=== PATIENT | female | born 1965 | race African-American/Black ===

== ENCOUNTER 2019-03-18 10:02 | Emergency (ER) | payer MEDICARE, MEDICAID ==
[~2019-03-18] VITALS: Ht 167.6 cm; Wt 135.0 kg
[2019-03-18 11:21] LABS: CLARITY URINE TURBID (CLEAR); COLOR URINE DARK YELLOW (YELLOW); KETONES URINE TRACE (NEGATIVE); LEUKOCYTE ESTERASE URINE 3+ (NEGATIVE); NITRITE URINE NEGATIVE (NEGATIVE); OCCULT BLOOD URINE 3+ (NEGATIVE); PROTEIN URINE 2+ (NEGATIVE); SPECIFIC GRAVITY URINE 1.017 (1.005-1.030)
[2019-03-18 11:25] LABS: BASOPHILS % 0.7 % (0.0-2.0); EOSINOPHILS % 0.1 % (0.0-5.0); HEMATOCRIT. 38.2 % (36.0-48.0); HEMOGLOBIN. 12.3 g/dL (12.0-16.0); LYMPHOCYTES % 15.3 % (20.0-50.0); MEAN CORPUSCULAR HEMOGLOBIN 29.2 pg (28.0-32.0); MEAN CORPUSCULAR VOLUME 90.6 fL (81.0-99.0); MONOCYTES % 9.1 % (2.0-8.0); NEUTROPHILS % 74.8 % (40.0-76.0); PLATELET 162 x1000/uL (130-400); RED BLOOD CELL COUNT 4.21 mill/uL (4.2-5.4); RED CELL DISTRIBUTION WIDTH 16.4 % (11.6-14.6)
[2019-03-18 11:32] LABS: CHLORIDE 105 mEq/L (98-107); PROTHROMBIN TIME 10.7 sec (9.6-11.0)
[2019-03-18] MEDS ORDERED: SODIUM CHLORIDE 0.9% 500 ML IV ONE (11:53)
[2019-03-18] MEDS ORDERED: CEFTRIAXONE 1 G PREMIX 50 ML IV ONE (12:00)
[2019-03-18] MEDS ORDERED: ACETAMINOPHEN 325MG TABLET PO ONE (13:15)
[2019-03-18 13:45] VITALS: BP 143/78
== END 2019-03-18 14:07 | disposition home or self-care (01) ==
LOC: ER 10:40
DX: N39.0 Urinary tract infection, site not specified (principal); E86.0 Dehydration; J45.909 Unspecified asthma, uncomplicated; I10 Essential (primary) hypertension; Z88.8 Allergy status to other drugs, medicaments and biological substances; Z93.0 Tracheostomy status; Z87.891 Personal history of nicotine dependence
CPT/HCPCS: 36415; 70450; 71045; 80053; 81003; 83605; 83880; 84484; 85025; 85610; 87040; 87077; 87086; 87186; 87804; 93005; 96365; 99284; J0696; J7040

== ENCOUNTER 2019-10-19 18:49 | Emergency (ER) | payer MEDICARE, MEDICAID ==
[~2019-10-19] VITALS: Ht 170.2 cm; Wt 145.0 kg
[2019-10-19] MEDS ORDERED: HYDROCODONE/ACETAMINOPHEN 5/325MG TABLET PO ONE (19:30)
[2019-10-19] MEDS ORDERED: ONDANSETRON 4MG ODT PO ONE (19:30)
[2019-10-19 22:21] VITALS: BP 179/75
== END 2019-10-19 22:32 | disposition home or self-care (01) ==
LOC: ER 18:49
DX: S60.212A Contusion of left wrist, initial encounter (principal); S80.02XA Contusion of left knee, initial encounter; E78.00 Pure hypercholesterolemia, unspecified; I10 Essential (primary) hypertension; Z88.8 Allergy status to other drugs, medicaments and biological substances; W18.30XA Fall on same level, unspecified, initial encounter; Y93.89 Activity, other specified; Y92.89 Other specified places as the place of occurrence of the external cause; Y99.8 Other external cause status
CPT/HCPCS: 73110; 73130; 73562; 73590; 99284; Q0162

== ENCOUNTER 2019-10-21 20:11 | Emergency (ER) | payer MEDICARE, MEDICAID ==
[~2019-10-21] VITALS: Ht 165.1 cm; Wt 172.0 kg
[2019-10-22 02:00] VITALS: BP 165/92
== END 2019-10-22 04:42 | disposition home or self-care (01) ==
LOC: ER 20:11
DX: F10.129 Alcohol abuse with intoxication, unspecified (principal); Y90.0 Blood alcohol level of less than 20 mg/100 ml; J44.9 Chronic obstructive pulmonary disease, unspecified; E78.00 Pure hypercholesterolemia, unspecified; I10 Essential (primary) hypertension; Z88.8 Allergy status to other drugs, medicaments and biological substances
CPT/HCPCS: 36415; 80320; 93005; 99284; G0480

== ENCOUNTER 2019-10-24 11:58 | Emergency (ER) | payer MEDICARE, MEDICAID ==
[~2019-10-24] VITALS: Ht 165.1 cm; Wt 135.0 kg
[2019-10-24] MEDS ORDERED: SODIUM CHLORIDE 0.9% 1,000 ML IV ONE (15:02)
[2019-10-24 16:09] LABS: EOSINOPHILS % 3.5 % (0.0-5.0); HEMATOCRIT. 38.6 % (36.0-48.0); HEMOGLOBIN. 12.8 g/dL (12.0-16.0); LYMPHOCYTES % 33.6 % (20.0-50.0); MEAN CORPUSCULAR HEMOGLOBIN 29.5 pg (28.0-32.0); MEAN CORPUSCULAR VOLUME 89.3 fL (81.0-99.0); MEAN PLATELET VOLUME 8.7 fl (7.4-10.4); MONOCYTES % 8.1 % (2.0-8.0); NEUTROPHILS % 53.8 % (40.0-76.0); PLATELET 182 x1000/uL (130-400); RED BLOOD CELL COUNT 4.32 mill/uL (4.2-5.4); RED CELL DISTRIBUTION WIDTH 15.7 % (11.6-14.6)
[2019-10-24 16:15] LABS: CHLORIDE 110 mEq/L (98-107)
[2019-10-24 16:19] LABS: ETHANOL BLOOD < 10 mg/dL
[2019-10-24] MEDS ORDERED: CLONIDINE 0.2MG TABLET PO ONE (18:00)
[2019-10-24] MEDS ORDERED: AMLODIPINE 5MG TABLET PO ONE (18:00)
[2019-10-24 18:05] LABS: CLARITY URINE CLEAR (CLEAR); COLOR URINE YELLOW (YELLOW); KETONES URINE TRACE (NEGATIVE); LEUKOCYTE ESTERASE URINE NEGATIVE (NEGATIVE); NITRITE URINE NEGATIVE (NEGATIVE); OCCULT BLOOD URINE NEGATIVE (NEGATIVE); PH URINE 5.5 (4.5-8.0); PROTEIN URINE NEGATIVE (NEGATIVE); SPECIFIC GRAVITY URINE 1.021 (1.005-1.030)
[2019-10-24 18:14] LABS: *AMPHETAMINES SCREEN URINE NEGATIVE (NEGATIVE); *BARBITURATES SCREEN URINE NEGATIVE (NEGATIVE); *BENZODIAZEPINES SCREEN URINE PRESUMTIVE POSITIVE (NEGATIVE); *COCAINE SCREEN URINE NEGATIVE (NEGATIVE)
[2019-10-24 18:15] LABS: CANNABINOID URINE SCREEN NEGATIVE (NEGATIVE); METHADONE URINE SCREEN NEGATIVE (NEGATIVE); OPIATES URINE SCREEN PRESUMTIVE POSITIVE (NEGATIVE); PHENCYCLIDINE URINE SCREEN NEGATIVE (NEGATIVE)
[2019-10-24 18:36] VITALS: BP 150/80
== END 2019-10-24 20:21 | disposition home or self-care (01) ==
LOC: ER 12:07
DX: F10.10 Alcohol abuse, uncomplicated (principal); Y90.0 Blood alcohol level of less than 20 mg/100 ml; I10 Essential (primary) hypertension; G92 Toxic encephalopathy; J44.9 Chronic obstructive pulmonary disease, unspecified; E78.00 Pure hypercholesterolemia, unspecified; Z88.8 Allergy status to other drugs, medicaments and biological substances
CPT/HCPCS: 36415; 70450; 80053; 80305; 80307; 80320; 80329; 81003; 85025; 99284; J7030; G0480

== ENCOUNTER 2019-10-25 01:31 | Inpatient (IN) | payer MEDICARE, MEDICAID ==
[~2019-10-25] VITALS: Ht 167.6 cm; Wt 165.6 kg
[2019-10-25] MEDS ORDERED: AMLODIPINE 10MG TABLET PO ONE (09:00)
[2019-10-25] MEDS ORDERED: CLONIDINE 0.2MG TABLET PO ONE (09:00)
[2019-10-25 11:44] LABS: BASOPHILS % 0.7 % (0.0-2.0); EOSINOPHILS % 3.3 % (0.0-5.0); HEMATOCRIT. 38.6 % (36.0-48.0); HEMOGLOBIN. 12.8 g/dL (12.0-16.0); LYMPHOCYTES % 24.6 % (20.0-50.0); MEAN CORPUSCULAR HEMOGLOBIN 29.8 pg (28.0-32.0); MEAN CORPUSCULAR VOLUME 89.6 fL (81.0-99.0); MEAN PLATELET VOLUME 8.9 fl (7.4-10.4); MONOCYTES % 7.5 % (2.0-8.0); NEUTROPHILS % 63.9 % (40.0-76.0); PLATELET 177 x1000/uL (130-400); RED CELL DISTRIBUTION WIDTH 16.2 % (11.6-14.6)
[2019-10-25 11:56] LABS: CHLORIDE 111 mEq/L (98-107); CLARITY URINE CLOUDY (CLEAR); COLOR URINE YELLOW (YELLOW); KETONES URINE NEGATIVE (NEGATIVE); LEUKOCYTE ESTERASE URINE NEGATIVE (NEGATIVE); NITRITE URINE NEGATIVE (NEGATIVE); OCCULT BLOOD URINE NEGATIVE (NEGATIVE); PROTEIN URINE NEGATIVE (NEGATIVE); SPECIFIC GRAVITY URINE 1.018 (1.005-1.030)
[2019-10-25] MEDS ORDERED: ONDANSETRON HCL 4MG/2ML INJ IV PRN (15:30)
[2019-10-25] MEDS ORDERED: CLONIDINE 0.1MG TABLET PO PRN (15:30)
[2019-10-25] MEDS ORDERED: HYDRALAZINE HCL 100MG TABLET PO NR (15:30)
[2019-10-25 22:30] VITALS: BP 154/82
[2019-10-26] MEDS: HYDRALAZINE HCL 100MG TABLET PO SCH ×4 (00:36→21:04)
[2019-10-26 04:00] VITALS: BP 143/71
[2019-10-26] MEDS: AMLODIPINE 10MG TABLET PO SCH (07:19)
[2019-10-26 08:00] VITALS: BP 126/68
[2019-10-26 12:00] VITALS: BP 145/74
[2019-10-26 16:00] VITALS: BP 127/70
[2019-10-26 19:56] VITALS: BP 154/85
[2019-10-26] MEDS: ACETAMINOPHEN 325MG TABLET PO PRN (23:27)
[2019-10-27] VITALS (7 sets, daily range): BP systolic 133–164; BP diastolic 71–81
[2019-10-27] MEDS: HYDRALAZINE HCL 100MG TABLET PO SCH ×3 (06:33→20:33)
[2019-10-27] MEDS: AMLODIPINE 10MG TABLET PO SCH (09:06)
[2019-10-27] MEDS: ACETAMINOPHEN 325MG TABLET PO PRN (20:33)
[2019-10-28] VITALS: BP 103/54
[2019-10-28] MEDS: ACETAMINOPHEN 325MG TABLET PO PRN (03:30)
[2019-10-28 04:00] VITALS: BP 145/88
[2019-10-28] MEDS ORDERED: OMEP20TA2 MT (04:54)
[2019-10-28] MEDS ORDERED: PANT40TA4 MT (04:54)
[2019-10-28] MEDS ORDERED: CARV3.1242 MT (04:54)
[2019-10-28] MEDS ORDERED: TOPUD PO (04:54)
[2019-10-28] MEDS ORDERED: SERT25TA74 MT (04:54)
[2019-10-28] MEDS ORDERED: CYCL10TA7 MT (04:54)
[2019-10-28] MEDS ORDERED: HYDR-4001 PO (04:54)
[2019-10-28] MEDS ORDERED: HYDR25TA MT (04:54)
[2019-10-28] MEDS ORDERED: ASPI-1497 PO (04:54)
[2019-10-28] MEDS ORDERED: ARIP15TA7 MT (04:54)
[2019-10-28] MEDS ORDERED: OXYB5SYR2 JT (04:54)
[2019-10-28] MEDS ORDERED: CLON0.2T MT (04:54)
[2019-10-28] MEDS ORDERED: NAPR500T7 MT (04:54)
[2019-10-28] MEDS ORDERED: SIMV10TA97 MT (04:54)
[2019-10-28] MEDS ORDERED: AMLO10TA80 MT (04:54)
[2019-10-28] MEDS ORDERED: VALS40TA11 MT (04:54)
[2019-10-28] MEDS ORDERED: ALPR2TAB97 MT (04:54)
[2019-10-28] MEDS ORDERED: FURO20TA4 MT (04:54)
[2019-10-28] MEDS ORDERED: SULF-288 MT (04:54)
[2019-10-28] MEDS ORDERED: AMLO5TAB88 MT (04:54)
[2019-10-28] MEDS: HYDRALAZINE HCL 100MG TABLET PO SCH ×3 (06:23→21:14)
[2019-10-28 08:00] VITALS: BP 156/79
[2019-10-28] MEDS: AMLODIPINE 10MG TABLET PO SCH (09:00)
[2019-10-28] MEDS ORDERED: LACTULOSE 20G/30ML UDC PO NR (11:15)
[2019-10-28] MEDS: HYDROCODONE/ACETAMINOPHEN 5/325MG TABLET PO PRN (11:23)
[2019-10-28 12:00] VITALS: BP 134/73
[2019-10-28] MEDS: DOCUSATE SODIUM 250MG CAPSULE PO SCH (12:21)
[2019-10-28 16:00] VITALS: BP 110/55
[2019-10-28 20:00] VITALS: BP 143/73
[2019-10-29] VITALS: BP 109/61
[2019-10-29] MEDS: HYDROCODONE/ACETAMINOPHEN 5/325MG TABLET PO PRN ×2 (00:31→21:41)
[2019-10-29 04:00] VITALS: BP 138/81
[2019-10-29] MEDS: HYDRALAZINE HCL 100MG TABLET PO SCH ×3 (05:19→21:40)
[2019-10-29 08:00] VITALS: BP 134/71
[2019-10-29] MEDS: DOCUSATE SODIUM 250MG CAPSULE PO SCH (08:44)
[2019-10-29] MEDS: AMLODIPINE 10MG TABLET PO SCH (08:45)
[2019-10-29 12:00] VITALS: BP 139/77
[2019-10-29 20:00] VITALS: BP 122/74
[2019-10-30] VITALS: BP 131/59
[2019-10-30 04:00] VITALS: BP 129/66
[2019-10-30] MEDS: HYDRALAZINE HCL 100MG TABLET PO SCH ×3 (06:17→21:34)
[2019-10-30] MEDS: AMLODIPINE 10MG TABLET PO SCH (09:00)
[2019-10-30] MEDS: DOCUSATE SODIUM 250MG CAPSULE PO SCH (09:01)
[2019-10-30] MEDS: OMEPRAZOLE 20MG CAPSULE EXTENDED RELEASE PO SCH (14:22)
[2019-10-30 20:00] VITALS: BP 132/75
[2019-10-30] MEDS: HYDROCODONE/ACETAMINOPHEN 5/325MG TABLET PO PRN (23:15)
[2019-10-31] VITALS: BP 117/64
[2019-10-31 04:00] VITALS: BP 133/56
[2019-10-31] MEDS: HYDROCODONE/ACETAMINOPHEN 5/325MG TABLET PO PRN ×2 (04:19→14:05)
[2019-10-31] MEDS: OMEPRAZOLE 20MG CAPSULE EXTENDED RELEASE PO SCH (05:23)
[2019-10-31 08:00] VITALS: BP 131/77
[2019-10-31] MEDS: AMLODIPINE 10MG TABLET PO SCH (08:46)
[2019-10-31] MEDS: DOCUSATE SODIUM 250MG CAPSULE PO SCH (08:46)
[2019-10-31 12:00] VITALS: BP 123/52
[2019-10-31] MEDS: HYDRALAZINE HCL 100MG TABLET PO SCH ×2 (13:58→21:21)
[2019-10-31 16:00] VITALS: BP 133/62
[2019-10-31 20:00] VITALS: BP 138/71
[2019-11-01] VITALS: BP 120/67
[2019-11-01 04:00] VITALS: BP 128/66
[2019-11-01] MEDS: HYDRALAZINE HCL 100MG TABLET PO SCH ×3 (05:43→21:47)
[2019-11-01 07:15] LABS: BASOPHILS % 0.9 % (0.0-2.0); HEMATOCRIT. 35.8 % (36.0-48.0); HEMOGLOBIN. 12.2 g/dL (12.0-16.0); MEAN CORPUSCULAR HEMOGLOBIN 30.6 pg (28.0-32.0); MEAN CORPUSCULAR VOLUME 89.5 fL (81.0-99.0); MEAN PLATELET VOLUME 9.3 fl (7.4-10.4); MONOCYTES % 8.6 % (2.0-8.0); NEUTROPHILS % 56.5 % (40.0-76.0); PLATELET 169 x1000/uL (130-400); RED CELL DISTRIBUTION WIDTH 15.3 % (11.6-14.6)
[2019-11-01 08:00] VITALS: BP 122/53
[2019-11-01 08:36] LABS: CHLORIDE 108 mEq/L (98-107)
[2019-11-01 08:43] LABS: PHOSPHORUS 4.3 mg/dL (2.5-4.9)
[2019-11-01] MEDS: AMLODIPINE 10MG TABLET PO SCH (08:51)
[2019-11-01] MEDS: DOCUSATE SODIUM 250MG CAPSULE PO SCH ×2 (08:51→09:00)
[2019-11-01] MEDS ORDERED: FAMOTIDINE 20MG TABLET PO SCH (09:00)
[2019-11-01 12:00] VITALS: BP 105/48
[2019-11-01] MEDS ORDERED: LACTULOSE 20G/30ML UDC PO NR (12:00)
[2019-11-01 16:00] VITALS: BP 134/87
[2019-11-01] MEDS: FAMOTIDINE 10MG TABLET PO SCH (18:15)
[2019-11-01 20:00] VITALS: BP 152/100
[2019-11-02] VITALS (7 sets, daily range): BP systolic 108–153; BP diastolic 47–87
[2019-11-02] MEDS: HYDRALAZINE HCL 100MG TABLET PO SCH ×3 (06:26→21:48)
[2019-11-02] MEDS: DOCUSATE SODIUM 250MG CAPSULE PO SCH (08:28)
[2019-11-02] MEDS: AMLODIPINE 10MG TABLET PO SCH (08:29)
[2019-11-02] MEDS: FAMOTIDINE 10MG TABLET PO SCH ×2 (08:29→18:33)
[2019-11-02] MEDS: ACETAMINOPHEN 325MG TABLET PO PRN (22:15)
[2019-11-03] VITALS: BP 111/58
[2019-11-03 04:00] VITALS: BP 138/81
[2019-11-03] MEDS: ACETAMINOPHEN 325MG TABLET PO PRN (05:01)
[2019-11-03] MEDS: HYDRALAZINE HCL 100MG TABLET PO SCH (05:52)
[2019-11-03 08:00] VITALS: BP 136/89
[2019-11-03] MEDS: AMLODIPINE 10MG TABLET PO SCH (08:42)
[2019-11-03] MEDS: FAMOTIDINE 10MG TABLET PO SCH (08:42)
[2019-11-03] MEDS: DOCUSATE SODIUM 250MG CAPSULE PO SCH (08:42)
[2019-11-03 09:38] VITALS: BP 136/89
== END 2019-11-03 10:50 | disposition home health service (06) | DRG 92 ==
LOC: ER 01:31 → 8WST 12:14 → ENRESERV 21:12
PROVIDERS: ADMIT Internal Medicine Nephrology; ATTEND Internal Medicine Nephrology
DX: R26.89 Other abnormalities of gait and mobility (principal); Z68.42 Body mass index [BMI] 45.0-49.9, adult; R53.1 Weakness; R29.6 Repeated falls; E66.01 Morbid (severe) obesity due to excess calories; I10 Essential (primary) hypertension; E87.8 Other disorders of electrolyte and fluid balance, not elsewhere classified; J45.909 Unspecified asthma, uncomplicated; K21.9 Gastro-esophageal reflux disease without esophagitis; F17.210 Nicotine dependence, cigarettes, uncomplicated; K59.00 Constipation, unspecified; Z60.2 Problems related to living alone; Z71.6 Tobacco abuse counseling; E78.00 Pure hypercholesterolemia, unspecified; D64.9 Anemia, unspecified; Z79.82 Long term (current) use of aspirin; Z88.8 Allergy status to other drugs, medicaments and biological substances; Z79.899 Other long term (current) drug therapy; Z71.3 Dietary counseling and surveillance
CPT/HCPCS: 36415; 71045; 80048; 80053; 80305; 80307; 80320; 80329; 81003; 82962; 83735; 84100; 84484; 85025; 93005; 97116; 97162; 97530; 99285; G0480